=== PATIENT | male | born 1980 | race Caucasian/White ===

== ENCOUNTER 2020-08-27 10:40 | Emergency (ER) | payer OTHER ==
[~2020-08-27] VITALS: Ht 185.4 cm; Wt 102.1 kg
[2020-08-27] MEDS ORDERED: ZOLOFT50 M1 PO (10:57)
[2020-08-27 11:41] LABS: ABSOLUTE BASOPHILS 0.1 thou/uL (0.0-0.2); ABSOLUTE EOSINOPHILS 0.3 thou/uL (0.0-0.7); ABSOLUTE LYMPHOCYTES 2.3 thou/uL (0.8-5.3); ABSOLUTE MONOCYTES 0.8 thou/uL (0.0-1.2); ABSOLUTE NEUTROPHILS 7.4 thou/uL (1.6-8.1); BASOPHILS 0.5 %; EOSINOPHILS 3.2 %; HEMATOCRIT 45.7 % (42.0-52.0); HEMOGLOBIN 15.4 gm/dL (14.0-18.0); MCH 30.8 pg (26.0-34.0); MCHC 33.8 g/dL (28.0-37.0); MCV 91.2 fL (80.0-100.0); MONOCYTES 7.7 %; MPV 7.5 fl. (7.2-11.1); NUCLEATED RBCS 0 /100WBC; PLATELET COUNT* 287 thou/uL (150-400); POLYS 67.6 %; RBC 5.01 mil/uL (4.50-6.00); RDW-CV 13.7 % (10.5-14.5); WBC 10.9 thou/uL (4.0-11.0)
[2020-08-27 11:49] LABS: CALCIUM 9.1 mg/dL (8.5-10.1); POTASSIUM 3.8 mmol/L (3.5-5.1)
[2020-08-27 11:54] LABS: ALBUMIN 3.7 g/dL (3.4-5.0); TOTAL BILIRUBIN 0.2 mg/dL (<0.1-1.0)
[2020-08-27] MEDS ORDERED: ELIQUIS5 MG PO (13:24)
[2020-08-27] MEDS ORDERED: SERTRALINE HCL50 MG PO (13:28)
[2020-08-27] MEDS ORDERED: ELIQUIS5 M1 PO (13:28)
[2020-08-27 13:41] VITALS: BP 123/72
--- NOTE | 2020-08-28 13:49 | EKG ---
[place] [address] ELECTROCARDIOGRAM REPORT Name: AUBREY ARMIJO Room: 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: : 1980 Requested By: Amy Azevedo Order Number: [id number] MD: Cisco Gregorio Measurements Intervals [place] Rate: 92 P: 43 MN: 139 QRS: 82 QRSD: 109 T: 56 QT: 359 QTc: 445 Interpretive Statements Sinus rhythm Abnormal R-wave progression, early transition No previous ECG available for comparison Electronically Signed On 08-28-2020 13:49:05 [employer] DIRECT[employer] by Cisco Gregorio [email or web address] <ELECTRONICALLY SIGNED> By: Cisco Gregorio MD, [facility] 08/28/20 1349 1132 113 Cisco Gregorio MD, FACC /EPI
== END 2020-08-27 13:42 | disposition home or self-care (01) ==
LOC: M.ERS 10:40
PROVIDERS: Physician Assistant
DX: I82.411 Acute embolism and thrombosis of right femoral vein (principal); Z76.0 Encounter for issue of repeat prescription; F17.210 Nicotine dependence, cigarettes, uncomplicated